=== PATIENT | male | born 1970 | race Caucasian/White ===

== ENCOUNTER 2018-11-07 07:15 | Day surgery (SDC) | payer BC ==
[2018-11-05 19:06] VITALS: BMI 27.2
[2018-11-07] MEDS ORDERED: PROPOFOL 20 ML ONE ×3 (08:23)
[2018-11-07] MEDS ORDERED: LIDOCAINE HCL/PF 2% SDV 5ML VIAL ONE (08:23)
[2018-11-07 09:15] VITALS: TEMP 98.4
[2018-11-07 09:28] VITALS: BP 118/62; PULSE 69
--- NOTE | 2018-11-08 17:51 | PATH ---
Surgical Pathology Report Patient Name: WILLIAM FIELD [facility]. Rec. #: [id number] /Age/Gender: 1970 (Age: 48) / M Account: [id number] Location: [facility] Taken: 11/07/2018 Received: 11/07/2018 Reported: 11/08/2018 Physicians: Tanner Paris M.D. Specimen(s) Received LEFT COLON Clinical History Rule out colon cancer Postoperative diagnosis: Diverticulosis, polyp Final Diagnosis LEFT COLON POLYP, POLYPECTOMY: TUBULAR ADENOMA. Electronically Signed Jermain Gregory M.D. Gross Description Received in formalin, labeled "left colon polyp" is a kelly, polypoid portion of soft tissue measuring 0.9 cm. in greatest dimension. The specimen is submitted in toto in one cassette. 11/07/201811/07/2018
== END 2018-11-07 09:30 | disposition home or self-care (01) ==
LOC: FASU-ENDO 07:15
PROVIDERS: ATTEND Internal Medicine Gastroenterology
PROC: 0DBM8ZX Excision of Descending Colon, Via Natural or Artificial Opening Endoscopic, Diagnostic (ICD-10-PCS; principal; 2018-11-07 08:32)
DX: Z12.11 Encounter for screening for malignant neoplasm of colon (principal); D12.4 Benign neoplasm of descending colon; K57.30 Diverticulosis of large intestine without perforation or abscess without bleeding
CPT/HCPCS: 88305-TC